=== PATIENT | female | born 1970 | race Caucasian/White ===

== ENCOUNTER 2016-12-19 05:52 | Day surgery (SDC) | payer OTHER ==
[2016-12-16 11:34] VITALS: BMI 22.6
[2016-12-19] MEDS ORDERED: LIDOCAINE HCL 2% (20ML MULTI-DOSE VIAL) NR ONE (06:59)
[2016-12-19] MEDS ORDERED: MIDAZOLAM HCL 2 MG/2 ML SINGLE DOSE VIAL ONE (07:31)
[2016-12-19] MEDS ORDERED: PROPOFOL 20 ML ONE ×2 (07:32)
[2016-12-19] MEDS ORDERED: oxyCODONE HCL 5 MG TABLET PO PRN ×2 (08:08)
[2016-12-19] MEDS ORDERED: ONDANSETRON 4 MG/2 ML VIAL IVPUSH PRN (08:08)
[2016-12-19] MEDS ORDERED: LIDOCAINE HCL/PF 2% SDV 5ML VIAL ONE (08:19)
[2016-12-19] MEDS ORDERED: ceFAZolin SODIUM 1 GM VIAL ONE (08:19)
[2016-12-19] MEDS ORDERED: ONDANSETRON 4 MG/2 ML VIAL ONE (08:19)
[2016-12-19] MEDS ORDERED: BUPIVACAINE HCL/PF 0.25% (2.5MG/ML) 10 ML VIAL IJ ONE (08:29)
[2016-12-19] MEDS ORDERED: LIDOCAINE HCL 1%, 10 MG/ML (20ML VIAL) INF ONE (08:30)
[2016-12-19 08:34] VITALS: TEMP 98.4
[2016-12-19 09:12] VITALS: BP 109/73; PULSE 80
--- NOTE | 2016-12-22 12:34 | OP ---
DATE OF OPERATION: 12/19/2016 SURGEON: Crystal Capellan MD ELECTRONICS MECHANIC: MARLON Gregory PREOPERATIVE DIAGNOSIS: Right carpal tunnel syndrome POSTOPERATIVE DIAGNOSIS: Right carpal tunnel syndrome PROCEDURE: Right carpal tunnel release. FINDINGS: Thickened transcarpal ligament with impingement by medial nerve. PROCEDURE: Under sterile conditions, right the upper extremity was prepped and draped in a sterile fashion. Incision was made along the longitudinal portion of the carpal tunnel. A longitudinal incision was made along the proximal portion of the palm, following the palm crease. This was taken down to the transcarpal ligament, which was released initially with scalpel and then extended proximally and distally using blunt tenotomy scissors. The median nerve was identified and completely released from impingement by the transcarpal ligament. The wound was then irrigated with copious amounts of irrigation. Skin was closed with 5-0 nylon in single interrupted sutures. CRYSTAL CAPELLAN M.D. [id number]
== END 2016-12-19 09:10 | disposition home or self-care (01) ==
LOC: FASU 05:52
PROVIDERS: ATTEND Orthopaedic Surgery
PROC: 01N50ZZ Release Median Nerve, Open Approach (ICD-10-PCS; principal; 2016-12-19 08:07)
DX: G56.01 Carpal tunnel syndrome, right upper limb (principal)
CPT/HCPCS: 84703